=== PATIENT | male | born 1945 | race Caucasian/White ===

== ENCOUNTER 2017-09-21 19:10 | Inpatient (IN) ==
[2017-09-21 19:39] LABS: Basophils % 0.1 % (0.0-0.8); Hematocrit 36.7 VOL% (42.0-52.0); Hemoglobin 12.2 GM/DL (14.0-18.0); Immature Granulocytes % 0.9 %; Immature Granulocytes Absolute 0.08 #; Lymphocytes # 0.4 10*3/uL (1.4-4.0); Lymphocytes % 4.7 % (21.2-54.2); Mean Corpuscular HGB Conc 33.2 GM/DL (32-36); Mean Corpuscular Hemoglobin 32 PG (27-34); Mean Corpuscular Volume 94.8 FL (87-102); Mean Platelet Volume 11.8 FL (9.6-12.0); Monocytes # 0.8 10*3/uL (0.11-0.8); Monocytes % 9.1 % (1.7-12.7); Neutrophils # 7.8 10*3/uL (1.4-7.4); Neutrophils % 85.2 % (38.7-73.9); Red Blood Count 3.87 MC/CUMM (3.8-5.5); Red Cell Distribution Width 13.2 % (9.3-17.3); White Blood Count 9.2 T/CUMM (4-12)
[2017-09-21 19:40] LABS: Platelet Count 87 T/CUMM (130-400)
[2017-09-21 19:45] LABS: INR 1.4; PT Patient Result 14.1 SECS; Partial Thromboplastin Time 34.8 SECS (0-40)
[2017-09-21] MEDS ORDERED: SODIUM CHLORIDE 0.9% 1,000 ML IV STA (19:53)
[2017-09-21] MEDS ORDERED: KETOROLAC 30 MG/1 ML VIAL IV STA (19:54)
[2017-09-21 20:06] LABS: Lactic Acid 1.5 MMOL/L (0.4-2.0)
[2017-09-21 20:13] LABS: Alanine Aminotransferase 159 U/L (16-61); Albumin 2.9 G/DL (3.4-5.0); Alkaline Phosphatase 86 U/L (45-117); Blood Urea Nitrogen 29 MG/DL (7-18); Calcium 8.1 MG/DL (8.5-10.1); Glucose 110 MG/DL (74-106); Osmolality,Calculated 289.1 MOS/KG (273-304); Potassium 4.7 MMOL/L (3.5-5.1); Sodium 142 MMOL/L (136-145); Total Protein 5.7 G/DL (6.4-8.3); Troponin I Only 0.045 NG/ML (0.00-0.045)
[2017-09-21 20:14] LABS: Aspartate Amino Transferase 1284 U/L (0-37)
[2017-09-21] MEDS ORDERED: VANCOMYCIN INJ 1,000 MG in SODIUM CHLORIDE 0.9% 250 ML IV STA (20:31)
[2017-09-21] MEDS ORDERED: AZITHROMYCIN INJ 500 MG in SODIUM CHLORIDE 0.9% 250 ML IV STA (20:32)
[2017-09-21] MEDS ORDERED: cefTRIAXone 1,000 MG in SODIUM CHLORIDE 0.9% 100 ML IV STA (20:32)
[2017-09-21] MEDS ORDERED: cefTRIAXone 1,000 MG VIAL ONE (21:12)
[2017-09-21] MEDS ORDERED: AZITHROMYCIN 500 MG VIAL IV ONE (21:12)
[2017-09-21] MEDS ORDERED: VANCOMYCIN 1,000 MG VIAL ONE (21:12)
[2017-09-21] MEDS ORDERED: KETOROLAC 30 MG/1 ML VIAL ONE (21:22)
[2017-09-21] MEDS ORDERED: ALBUTEROL 2.5 MG/3 ML NEB RESP TX PRN (21:38)
[2017-09-21] MEDS ORDERED: ONDANSETRON 4 MG/2 ML VIAL IV PRN (21:38)
[2017-09-21] MEDS: OSELTAMIVIR 75 MG CAPSULE PO SCH (23:10)
[2017-09-22] MEDS: ALBUTEROL/IPRATROPIUM 3 ML NEB RESP TX SCH ×4 (00:48→19:24)
[2017-09-22] MEDS: VANCOMYCIN INJ 1,250 MG in SODIUM CHLORIDE 0.9% 250 ML IV SCH ×3 (05:29→23:05)
[2017-09-22] MEDS: BUDESONIDE 0.5 MG/2 ML NEB RESP TX SCH ×2 (07:45→19:25)
[2017-09-22 07:57] LABS: Basophils % 0.2 % (0.0-0.8); Hematocrit 34.1 VOL% (42.0-52.0); Hemoglobin 11.1 GM/DL (14.0-18.0); Immature Granulocytes % 0.7 %; Immature Granulocytes Absolute 0.06 #; Lymphocytes % 10.8 % (21.2-54.2); Mean Corpuscular HGB Conc 32.6 GM/DL (32-36); Mean Corpuscular Hemoglobin 31 PG (27-34); Mean Corpuscular Volume 96.1 FL (87-102); Mean Platelet Volume 12.1 FL (9.6-12.0); Monocytes # 0.5 10*3/uL (0.11-0.8); Monocytes % 5.6 % (1.7-12.7); Neutrophils # 7.4 10*3/uL (1.4-7.4); Neutrophils % 82.7 % (38.7-73.9); Red Blood Count 3.55 MC/CUMM (3.8-5.5); Red Cell Distribution Width 13.3 % (9.3-17.3)
[2017-09-22 08:13] LABS: Platelet Count 76 T/CUMM (130-400)
[2017-09-22 08:23] LABS: Band Neutrophils 13 % (0-10); Hypochromasia 1+; Lymphocytes 9 % (20-55); Ovalocytes Slight; Segmented Neutrophils 74 % (50-85); Total Cells Counted 100
[2017-09-22 08:24] LABS: Microcytosis Slight; Platelet Estimate Decreased; Tear Drop Cells Slight
[2017-09-22 08:27] LABS: Albumin 2.8 G/DL (3.4-5.0); Bilirubin,Total 1.1 MG/DL (0.2-1.0); Calcium 7.9 MG/DL (8.5-10.1); Osmolality,Calculated 293.7 MOS/KG (273-304); Potassium 4.4 MMOL/L (3.5-5.1)
[2017-09-22 09:13] LABS: Albumin 2.8 G/DL (3.4-5.0); Bilirubin,Total 1.1 MG/DL (0.2-1.0)
[2017-09-22 09:23] LABS: Bilirubin,Direct 0.584 MG/DL (0.0-0.20); Bilirubin,Indirect 0.5 MG/DL (0.0-1.0)
[2017-09-22 09:27] LABS: Hepatitis A Ab IgM Result Negative (Negative); Hepatitis B Core IgM Quant 0.18 Index; Hepatitis B Core IgM Result Negative (Negative); Hepatitis B Surface Ag Quant 0.12 Index; Hepatitis B Surface Ag Result Negative (Negative); Hepatitis C Virus Ab Quant 0.08 Index; Hepatitis C Virus Ab Result Negative (Negative)
[2017-09-22] MEDS: ENOXAPARIN 40 MG/0.4 ML SYRINGE SUBCUT SCH (09:28)
[2017-09-22] MEDS: LEVOTHYROXINE 88 MCG TABLET PO SCH (09:29)
[2017-09-22] MEDS: RIVASTIGMINE 3 MG CAPSULE PO SCH ×2 (09:29→16:35)
[2017-09-22] MEDS: rOPINIRole 1 MG TABLET PO SCH ×3 (09:30→21:24)
[2017-09-22] MEDS: buPROPion XL 150 MG TABLET PO SCH (09:30)
[2017-09-22] MEDS: LURASIDONE 40 MG TABLET PO SCH (09:30)
[2017-09-22] MEDS: ENTACAPONE 200 MG TABLET PO SCH ×5 (09:31→21:25)
[2017-09-22] MEDS: OSELTAMIVIR 75 MG CAPSULE PO SCH ×2 (09:31→21:24)
[2017-09-22] MEDS: AMIODARONE 200 MG TABLET PO SCH (09:32)
[2017-09-22] MEDS: FOLIC ACID 1 MG TABLET PO SCH (09:32)
[2017-09-22] MEDS: ASPIRIN EC 81 MG TABLET PO SCH (09:32)
[2017-09-22] MEDS: MEMANTINE 10 MG TABLET PO SCH ×2 (09:32→21:25)
[2017-09-22] MEDS: hydrOXYzine HCL 10 MG TABLET PO SCH (09:33)
[2017-09-22] MEDS: PANTOPRAZOLE 40 MG TABLET PO SCH (09:33)
[2017-09-22] MEDS: CHOLECALCIFEROL 1,000 UNIT TABLET PO SCH (09:34)
[2017-09-22] MEDS: CARBIDOPA/LEVODOPA CR 50-200 MG TABLET PO SCH ×3 (11:46→21:25)
[2017-09-22 15:55] LABS: Acetaminophen 4.6 UG/ML (10-30); Salicylate 12.3 MG/DL (2.8-20)
[2017-09-22] MEDS: cefTRIAXone 1,000 MG in SYRINGE 1 EACH IV SCH (21:22)
[2017-09-22] MEDS: ATORVASTATIN 40 MG TABLET PO SCH (21:24)
[2017-09-22] MEDS: ESCITALOPRAM 10 MG TABLET PO SCH (21:25)
[2017-09-22] MEDS: AZITHROMYCIN INJ 500 MG in SODIUM CHLORIDE 0.9% 250 ML IV SCH (21:28)
[2017-09-23] MEDS: ALBUTEROL/IPRATROPIUM 3 ML NEB RESP TX SCH ×4 (00:28→19:24)
[2017-09-23] MEDS: VANCOMYCIN INJ 1,250 MG in SODIUM CHLORIDE 0.9% 250 ML IV SCH ×2 (06:07→21:31)
[2017-09-23] MEDS: LEVOTHYROXINE 88 MCG TABLET PO SCH (06:12)
[2017-09-23] MEDS: ENTACAPONE 200 MG TABLET PO SCH ×5 (06:12→21:27)
[2017-09-23 06:22] LABS: INR 1.3; PT Patient Result 13.1 SECS
[2017-09-23 06:25] LABS: Basophils % 0.3 % (0.0-0.8); Eosinophils # 0.1 10*3/uL (0.0-0.87); Eosinophils % 1.4 % (0.00-10.9); Hematocrit 30.7 VOL% (42.0-52.0); Hemoglobin 10.4 GM/DL (14.0-18.0); Immature Granulocytes % 0.6 %; Immature Granulocytes Absolute 0.04 #; Lymphocytes # 0.7 10*3/uL (1.4-4.0); Lymphocytes % 10.6 % (21.2-54.2); Mean Corpuscular HGB Conc 33.9 GM/DL (32-36); Mean Corpuscular Hemoglobin 31 PG (27-34); Mean Corpuscular Volume 91.9 FL (87-102); Mean Platelet Volume 11.9 FL (9.6-12.0); Monocytes # 0.5 10*3/uL (0.11-0.8); Monocytes % 7.9 % (1.7-12.7); Neutrophils # 5.1 10*3/uL (1.4-7.4); Neutrophils % 79.2 % (38.7-73.9); Platelet Count 74 T/CUMM (130-400); Red Blood Count 3.34 MC/CUMM (3.8-5.5); Red Cell Distribution Width 13.2 % (9.3-17.3); White Blood Count 6.5 T/CUMM (4-12)
[2017-09-23 06:49] LABS: Calcium 8.1 MG/DL (8.5-10.1); Osmolality,Calculated 285.1 MOS/KG (273-304)
[2017-09-23 06:50] LABS: Albumin 2.5 G/DL (3.4-5.0); Bilirubin,Direct 0.54 MG/DL (0.0-0.20); Bilirubin,Total 1.1 MG/DL (0.2-1.0)
[2017-09-23 06:57] LABS: Band Neutrophils 2 % (0-10); Eosinophils 1 % (0-10); Lymphocytes 11 % (20-55); Segmented Neutrophils 80 % (50-85); Total Cells Counted 100
[2017-09-23 06:58] LABS: Giant Platelets Few; Hypochromasia 1+; Microcytosis Slight; Ovalocytes Slight; Platelet Estimate Decreased
[2017-09-23] MEDS: BUDESONIDE 0.5 MG/2 ML NEB RESP TX SCH ×2 (07:09→19:24)
[2017-09-23 07:56] LABS: Albumin 2.5 G/DL (3.4-5.0); Bilirubin,Direct 0.63 MG/DL (0.0-0.20); Bilirubin,Indirect 0.5 MG/DL (0.0-1.0); Bilirubin,Total 1.1 MG/DL (0.2-1.0); Total Protein 4.7 G/DL (6.4-8.3)
[2017-09-23] MEDS: ENOXAPARIN 40 MG/0.4 ML SYRINGE SUBCUT SCH (09:39)
[2017-09-23] MEDS: OSELTAMIVIR 75 MG CAPSULE PO SCH ×2 (09:40→21:28)
[2017-09-23] MEDS: rOPINIRole 1 MG TABLET PO SCH ×3 (09:40→21:28)
[2017-09-23] MEDS: LURASIDONE 40 MG TABLET PO SCH (09:42)
[2017-09-23] MEDS: RIVASTIGMINE 3 MG CAPSULE PO SCH ×2 (09:42→17:09)
[2017-09-23] MEDS: CARBIDOPA/LEVODOPA CR 50-200 MG TABLET PO SCH ×3 (09:42→21:28)
[2017-09-23] MEDS: AMIODARONE 200 MG TABLET PO SCH (09:43)
[2017-09-23] MEDS: ASPIRIN EC 81 MG TABLET PO SCH (09:43)
[2017-09-23] MEDS: CHOLECALCIFEROL 1,000 UNIT TABLET PO SCH (09:43)
[2017-09-23] MEDS: buPROPion XL 150 MG TABLET PO SCH (09:43)
[2017-09-23] MEDS: hydrOXYzine HCL 10 MG TABLET PO SCH (09:43)
[2017-09-23] MEDS: FOLIC ACID 1 MG TABLET PO SCH (09:44)
[2017-09-23] MEDS: PANTOPRAZOLE 40 MG TABLET PO SCH (09:45)
[2017-09-23] MEDS: MEMANTINE 10 MG TABLET PO SCH ×2 (09:48→21:28)
[2017-09-23] MEDS: AZITHROMYCIN INJ 500 MG in SODIUM CHLORIDE 0.9% 250 ML IV SCH (21:22)
[2017-09-23] MEDS: cefTRIAXone 1,000 MG in SYRINGE 1 EACH IV SCH (21:24)
[2017-09-23] MEDS: ESCITALOPRAM 10 MG TABLET PO SCH (21:27)
[2017-09-23] MEDS: ATORVASTATIN 40 MG TABLET PO SCH (21:28)
[2017-09-24] MEDS: ALBUTEROL/IPRATROPIUM 3 ML NEB RESP TX SCH ×4 (00:37→19:39)
[2017-09-24 05:30] LABS: Basophils % 0.2 % (0.0-0.8); Eosinophils # 0.1 10*3/uL (0.0-0.87); Eosinophils % 2.7 % (0.00-10.9); Hematocrit 31.5 VOL% (42.0-52.0); Hemoglobin 10.6 GM/DL (14.0-18.0); Immature Granulocytes % 0.4 %; Immature Granulocytes Absolute 0.02 #; Lymphocytes # 0.7 10*3/uL (1.4-4.0); Lymphocytes % 12.9 % (21.2-54.2); Mean Corpuscular HGB Conc 33.7 GM/DL (32-36); Mean Corpuscular Hemoglobin 31 PG (27-34); Mean Corpuscular Volume 91.6 FL (87-102); Mean Platelet Volume 12.5 FL (9.6-12.0); Monocytes # 0.4 10*3/uL (0.11-0.8); Monocytes % 8.4 % (1.7-12.7); Neutrophils # 3.8 10*3/uL (1.4-7.4); Neutrophils % 75.4 % (38.7-73.9); Platelet Count 80 T/CUMM (130-400); Red Blood Count 3.44 MC/CUMM (3.8-5.5); Red Cell Distribution Width 13.3 % (9.3-17.3); White Blood Count 5.1 T/CUMM (4-12)
[2017-09-24 05:58] LABS: Potassium 4.3 MMOL/L (3.5-5.1)
[2017-09-24 06:05] LABS: Albumin 2.5 G/DL (3.4-5.0); Bilirubin,Total 1.4 MG/DL (0.2-1.0); Calcium 7.9 MG/DL (8.5-10.1); Potassium 4.1 MMOL/L (3.5-5.1); Total Protein 4.6 G/DL (6.4-8.3)
[2017-09-24] MEDS: LEVOTHYROXINE 88 MCG TABLET PO SCH (06:14)
[2017-09-24] MEDS: ENTACAPONE 200 MG TABLET PO SCH ×5 (06:14→22:55)
[2017-09-24 06:40] LABS: Hypochromasia 1+; Microcytosis Slight; Ovalocytes Slight; Platelet Estimate Decreased
[2017-09-24] MEDS: BUDESONIDE 0.5 MG/2 ML NEB RESP TX SCH ×2 (07:10→19:39)
[2017-09-24] MEDS: RIVASTIGMINE 3 MG CAPSULE PO SCH ×2 (09:52→18:18)
[2017-09-24] MEDS: CHOLECALCIFEROL 1,000 UNIT TABLET PO SCH (09:53)
[2017-09-24] MEDS: OSELTAMIVIR 75 MG CAPSULE PO SCH ×2 (09:53→22:39)
[2017-09-24] MEDS: rOPINIRole 1 MG TABLET PO SCH ×3 (09:53→22:55)
[2017-09-24] MEDS: ASPIRIN EC 81 MG TABLET PO SCH (09:53)
[2017-09-24] MEDS: LURASIDONE 40 MG TABLET PO SCH (09:53)
[2017-09-24] MEDS: buPROPion XL 150 MG TABLET PO SCH (09:53)
[2017-09-24] MEDS: MEMANTINE 10 MG TABLET PO SCH ×2 (09:54→22:39)
[2017-09-24] MEDS: PANTOPRAZOLE 40 MG TABLET PO SCH (09:54)
[2017-09-24] MEDS: AMIODARONE 200 MG TABLET PO SCH (09:54)
[2017-09-24] MEDS: CARBIDOPA/LEVODOPA CR 50-200 MG TABLET PO SCH ×3 (09:54→22:41)
[2017-09-24] MEDS: VANCOMYCIN INJ 1,250 MG in SODIUM CHLORIDE 0.9% 250 ML IV SCH (09:54)
[2017-09-24] MEDS: FOLIC ACID 1 MG TABLET PO SCH (09:54)
[2017-09-24] MEDS: DOCUSATE SODIUM 100 MG CAPSULE PO SCH ×2 (09:55→22:39)
[2017-09-24] MEDS: hydrOXYzine HCL 10 MG TABLET PO SCH (12:13)
[2017-09-24] MEDS: cefTRIAXone 1,000 MG in SYRINGE 1 EACH IV SCH (22:38)
[2017-09-24] MEDS: AZITHROMYCIN INJ 500 MG in SODIUM CHLORIDE 0.9% 250 ML IV SCH (22:39)
[2017-09-24] MEDS: ESCITALOPRAM 10 MG TABLET PO SCH (22:40)
[2017-09-24] MEDS: ATORVASTATIN 40 MG TABLET PO SCH (22:40)
[2017-09-25] MEDS: VANCOMYCIN INJ 1,250 MG in SODIUM CHLORIDE 0.9% 250 ML IV SCH ×2 (00:22→12:20)
[2017-09-25] MEDS: ALBUTEROL/IPRATROPIUM 3 ML NEB RESP TX SCH ×4 (00:58→20:17)
[2017-09-25] MEDS: ENOXAPARIN 40 MG/0.4 ML SYRINGE SUBCUT SCH (03:01)
[2017-09-25 05:31] LABS: Basophils % 0.5 % (0.0-0.8); Eosinophils # 0.2 10*3/uL (0.0-0.87); Eosinophils % 5.5 % (0.00-10.9); Hematocrit 30.5 VOL% (42.0-52.0); Hemoglobin 10.5 GM/DL (14.0-18.0); Immature Granulocytes Absolute 0.04 #; Lymphocytes # 0.8 10*3/uL (1.4-4.0); Lymphocytes % 19.9 % (21.2-54.2); Mean Corpuscular HGB Conc 34.4 GM/DL (32-36); Mean Corpuscular Hemoglobin 31 PG (27-34); Mean Corpuscular Volume 91.3 FL (87-102); Mean Platelet Volume 12.1 FL (9.6-12.0); Monocytes # 0.4 10*3/uL (0.11-0.8); Neutrophils # 2.4 10*3/uL (1.4-7.4); Neutrophils % 62.1 % (38.7-73.9); Platelet Count 96 T/CUMM (130-400); Red Blood Count 3.34 MC/CUMM (3.8-5.5); Red Cell Distribution Width 13.2 % (9.3-17.3); White Blood Count 3.8 T/CUMM (4-12)
[2017-09-25 06:08] LABS: Albumin 2.5 G/DL (3.4-5.0); Calcium 7.9 MG/DL (8.5-10.1); Osmolality,Calculated 282.1 MOS/KG (273-304); Total Protein 4.7 G/DL (6.4-8.3)
[2017-09-25] MEDS: ENTACAPONE 200 MG TABLET PO SCH ×5 (06:42→21:09)
[2017-09-25] MEDS: LEVOTHYROXINE 88 MCG TABLET PO SCH (06:42)
[2017-09-25] MEDS: BUDESONIDE 0.5 MG/2 ML NEB RESP TX SCH ×2 (07:01→20:17)
[2017-09-25] MEDS: PANTOPRAZOLE 40 MG TABLET PO SCH (09:14)
[2017-09-25] MEDS: rOPINIRole 1 MG TABLET PO SCH ×3 (09:14→21:09)
[2017-09-25] MEDS: MEMANTINE 10 MG TABLET PO SCH ×2 (09:15→21:09)
[2017-09-25] MEDS: OSELTAMIVIR 75 MG CAPSULE PO SCH ×2 (09:15→21:09)
[2017-09-25] MEDS: FOLIC ACID 1 MG TABLET PO SCH (09:15)
[2017-09-25] MEDS: DOCUSATE SODIUM 100 MG CAPSULE PO SCH ×2 (09:15→21:09)
[2017-09-25] MEDS: buPROPion XL 150 MG TABLET PO SCH (09:15)
[2017-09-25] MEDS: CARBIDOPA/LEVODOPA CR 50-200 MG TABLET PO SCH ×3 (09:15→21:09)
[2017-09-25] MEDS: RIVASTIGMINE 3 MG CAPSULE PO SCH ×2 (09:15→17:31)
[2017-09-25] MEDS: ASPIRIN EC 81 MG TABLET PO SCH (09:15)
[2017-09-25] MEDS: LURASIDONE 40 MG TABLET PO SCH (09:15)
[2017-09-25] MEDS: CHOLECALCIFEROL 1,000 UNIT TABLET PO SCH (09:15)
[2017-09-25] MEDS: hydrOXYzine HCL 10 MG TABLET PO SCH (09:16)
[2017-09-25] MEDS: AMIODARONE 200 MG TABLET PO SCH (09:16)
[2017-09-25] MEDS ORDERED: ZINC OXIDE PASTE 113 GM TUBE TOP PRN (17:04)
[2017-09-25] MEDS: AZITHROMYCIN INJ 500 MG in SODIUM CHLORIDE 0.9% 250 ML IV SCH (21:04)
[2017-09-25] MEDS: cefTRIAXone 1,000 MG in SYRINGE 1 EACH IV SCH (21:06)
[2017-09-25] MEDS: ATORVASTATIN 40 MG TABLET PO SCH (21:09)
[2017-09-25] MEDS: ESCITALOPRAM 10 MG TABLET PO SCH (21:09)
[2017-09-26] MEDS: ALBUTEROL/IPRATROPIUM 3 ML NEB RESP TX SCH ×4 (01:57→20:30)
[2017-09-26] MEDS: LEVOTHYROXINE 88 MCG TABLET PO SCH (05:25)
[2017-09-26] MEDS: ENTACAPONE 200 MG TABLET PO SCH ×5 (05:25→21:42)
[2017-09-26] MEDS: VANCOMYCIN INJ 1,250 MG in SODIUM CHLORIDE 0.9% 250 ML IV SCH (05:28)
[2017-09-26] MEDS: BUDESONIDE 0.5 MG/2 ML NEB RESP TX SCH ×2 (07:02→20:30)
[2017-09-26 07:17] LABS: Eosinophils # 0.3 10*3/uL (0.0-0.87); Hematocrit 31.7 VOL% (42.0-52.0); Hemoglobin 10.8 GM/DL (14.0-18.0); Immature Granulocytes % 2.2 %; Immature Granulocytes Absolute 0.09 #; Lymphocytes # 0.8 10*3/uL (1.4-4.0); Lymphocytes % 20.2 % (21.2-54.2); Mean Corpuscular HGB Conc 34.1 GM/DL (32-36); Mean Corpuscular Hemoglobin 31 PG (27-34); Mean Corpuscular Volume 91.9 FL (87-102); Mean Platelet Volume 11.5 FL (9.6-12.0); Monocytes # 0.5 10*3/uL (0.11-0.8); Neutrophils # 2.3 10*3/uL (1.4-7.4); Neutrophils % 56.6 % (38.7-73.9); Platelet Count 107 T/CUMM (130-400); Red Blood Count 3.45 MC/CUMM (3.8-5.5); Red Cell Distribution Width 13.3 % (9.3-17.3)
[2017-09-26 07:44] LABS: Osmolality,Calculated 283.1 MOS/KG (273-304); Potassium 4.3 MMOL/L (3.5-5.1)
[2017-09-26 08:14] LABS: Albumin 2.6 G/DL (3.4-5.0); Bilirubin,Direct 0.31 MG/DL (0.0-0.20); Bilirubin,Indirect 0.4 MG/DL (0.0-1.0); Bilirubin,Total 0.7 MG/DL (0.2-1.0); Total Protein 4.9 G/DL (6.4-8.3)
[2017-09-26] MEDS: DOCUSATE SODIUM 100 MG CAPSULE PO SCH ×2 (08:29→21:40)
[2017-09-26] MEDS: buPROPion XL 150 MG TABLET PO SCH (08:29)
[2017-09-26] MEDS: rOPINIRole 1 MG TABLET PO SCH ×3 (08:29→21:42)
[2017-09-26] MEDS: OSELTAMIVIR 75 MG CAPSULE PO SCH ×2 (08:29→21:41)
[2017-09-26] MEDS: RIVASTIGMINE 3 MG CAPSULE PO SCH ×2 (08:29→17:28)
[2017-09-26] MEDS: CHOLECALCIFEROL 1,000 UNIT TABLET PO SCH (08:29)
[2017-09-26] MEDS: LURASIDONE 40 MG TABLET PO SCH (08:30)
[2017-09-26] MEDS: hydrOXYzine HCL 10 MG TABLET PO SCH (08:30)
[2017-09-26] MEDS: MEMANTINE 10 MG TABLET PO SCH ×2 (08:30→21:41)
[2017-09-26] MEDS: ASPIRIN EC 81 MG TABLET PO SCH (08:30)
[2017-09-26] MEDS: FOLIC ACID 1 MG TABLET PO SCH (08:30)
[2017-09-26] MEDS: PANTOPRAZOLE 40 MG TABLET PO SCH (08:30)
[2017-09-26] MEDS: AMIODARONE 200 MG TABLET PO SCH (08:30)
[2017-09-26] MEDS: CARBIDOPA/LEVODOPA CR 50-200 MG TABLET PO SCH ×3 (08:30→21:41)
[2017-09-26] MEDS: MAGNESIUM HYDROXIDE SUSP 30 ML UDCUP PO PRN (14:31)
[2017-09-26] MEDS: ESCITALOPRAM 10 MG TABLET PO SCH (21:40)
[2017-09-26] MEDS: ATORVASTATIN 40 MG TABLET PO SCH (21:40)
[2017-09-26] MEDS: cefTRIAXone 1,000 MG in SYRINGE 1 EACH IV SCH (21:44)
[2017-09-26] MEDS: AZITHROMYCIN INJ 500 MG in SODIUM CHLORIDE 0.9% 250 ML IV SCH (21:53)
[2017-09-27] MEDS: VANCOMYCIN INJ 1,250 MG in SODIUM CHLORIDE 0.9% 250 ML IV SCH (00:08)
[2017-09-27] MEDS: ALBUTEROL/IPRATROPIUM 3 ML NEB RESP TX SCH ×4 (00:25→21:21)
[2017-09-27] MEDS: ENTACAPONE 200 MG TABLET PO SCH ×5 (06:03→22:24)
[2017-09-27] MEDS: LEVOTHYROXINE 88 MCG TABLET PO SCH (06:03)
[2017-09-27] MEDS: BUDESONIDE 0.5 MG/2 ML NEB RESP TX SCH ×2 (06:55→21:21)
[2017-09-27] MEDS: PANTOPRAZOLE 40 MG TABLET PO SCH (08:33)
[2017-09-27] MEDS: buPROPion XL 150 MG TABLET PO SCH (08:33)
[2017-09-27] MEDS: MAGNESIUM HYDROXIDE SUSP 30 ML UDCUP PO PRN (08:33)
[2017-09-27] MEDS: rOPINIRole 1 MG TABLET PO SCH ×3 (08:33→20:57)
[2017-09-27] MEDS: CARBIDOPA/LEVODOPA CR 50-200 MG TABLET PO SCH ×3 (08:34→21:03)
[2017-09-27] MEDS: DOCUSATE SODIUM 100 MG CAPSULE PO SCH ×2 (08:34→20:58)
[2017-09-27] MEDS: AMIODARONE 200 MG TABLET PO SCH (08:34)
[2017-09-27] MEDS: CHOLECALCIFEROL 1,000 UNIT TABLET PO SCH (08:34)
[2017-09-27] MEDS: MEMANTINE 10 MG TABLET PO SCH ×2 (08:34→20:57)
[2017-09-27] MEDS: RIVASTIGMINE 3 MG CAPSULE PO SCH ×2 (08:34→17:52)
[2017-09-27] MEDS: ASPIRIN EC 81 MG TABLET PO SCH (08:34)
[2017-09-27] MEDS: OSELTAMIVIR 75 MG CAPSULE PO SCH (08:34)
[2017-09-27] MEDS: FOLIC ACID 1 MG TABLET PO SCH (08:34)
[2017-09-27] MEDS ORDERED: hydrOXYzine HCL 10 MG TABLET PO SCH (09:00)
[2017-09-27] MEDS ORDERED: LORazepam 0.5 MG TABLET PO PRN (14:40)
[2017-09-27] MEDS: hydrOXYzine HCL 25 MG TABLET PO SCH ×2 (15:40→20:58)
[2017-09-27] MEDS ORDERED: SODIUM CHLORIDE 0.9% 250 ML IV ONE (20:53)
[2017-09-27] MEDS: ATORVASTATIN 40 MG TABLET PO SCH (20:57)
[2017-09-27] MEDS: ESCITALOPRAM 10 MG TABLET PO SCH (20:58)
[2017-09-27] MEDS: cefTRIAXone 1,000 MG in SYRINGE 1 EACH IV SCH (20:58)
[2017-09-27] MEDS ORDERED: LURASIDONE 40 MG TABLET PO SCH (21:00)
[2017-09-28] MEDS: ALBUTEROL/IPRATROPIUM 3 ML NEB RESP TX SCH ×3 (01:34→13:40)
[2017-09-28] MEDS: ENTACAPONE 200 MG TABLET PO SCH ×2 (06:33→09:13)
[2017-09-28] MEDS: LEVOTHYROXINE 88 MCG TABLET PO SCH (06:33)
[2017-09-28] MEDS: BUDESONIDE 0.5 MG/2 ML NEB RESP TX SCH (07:50)
[2017-09-28] MEDS: CARBIDOPA/LEVODOPA CR 50-200 MG TABLET PO SCH (08:25)
[2017-09-28] MEDS: DOCUSATE SODIUM 100 MG CAPSULE PO SCH (08:25)
[2017-09-28] MEDS: RIVASTIGMINE 3 MG CAPSULE PO SCH (08:25)
[2017-09-28] MEDS: rOPINIRole 1 MG TABLET PO SCH (08:25)
[2017-09-28] MEDS: buPROPion XL 150 MG TABLET PO SCH (08:25)
[2017-09-28] MEDS: MEMANTINE 10 MG TABLET PO SCH (08:26)
[2017-09-28] MEDS: AMIODARONE 200 MG TABLET PO SCH (08:26)
[2017-09-28] MEDS: PANTOPRAZOLE 40 MG TABLET PO SCH (08:26)
[2017-09-28] MEDS: ASPIRIN EC 81 MG TABLET PO SCH (08:26)
[2017-09-28] MEDS: FOLIC ACID 1 MG TABLET PO SCH (08:26)
[2017-09-28] MEDS: hydrOXYzine HCL 25 MG TABLET PO SCH (08:27)
[2017-09-28] MEDS: CHOLECALCIFEROL 1,000 UNIT TABLET PO SCH (08:31)
[2017-09-28 12:14] VITALS: BP 102/56
[2017-09-28] MEDS: cefTRIAXone 1,000 MG in SYRINGE 1 EACH IV SCH (12:30)
== END 2017-09-28 13:58 | disposition home health service (06) | DRG 871 ==
LOC: EDBD → EDUNIT# → N.ED 19:10 → N.EDINP 21:18 → SUATTDRO 21:19 → N.2E 21:54
PROVIDERS: ADMIT Internal Medicine Infectious Disease; ATTEND Internal Medicine

== ENCOUNTER 2019-01-21 08:12 | Inpatient (IN) ==
[2019-01-21] MEDS ORDERED: SODIUM CHLORIDE 0.9% 1,000 ML IV STA (08:49)
[2019-01-21 09:42] LABS: Basophils # 0.1 10*3/uL (0.0-0.2); Basophils % 0.7 % (0.0-0.8); Eosinophils # 0.1 10*3/uL (0.0-0.87); Eosinophils % 0.7 % (0.00-10.9); Hematocrit 40.1 VOL% (42.0-52.0); Hemoglobin 12.9 GM/DL (14.0-18.0); Immature Granulocytes % 0.5 %; Immature Granulocytes Absolute 0.05 #; Lymphocytes # 0.8 10*3/uL (1.4-4.0); Lymphocytes % 8.2 % (21.2-54.2); Mean Corpuscular HGB Conc 32.2 GM/DL (32-36); Mean Corpuscular Volume 97.1 FL (87-102); Mean Platelet Volume 10.8 FL (9.6-12.0); Monocytes % 7.7 % (1.7-12.7); Neutrophils % 82.2 % (38.7-73.9); Platelet Count 161 T/CUMM (130-400); Red Blood Count 4.13 MC/CUMM (3.8-5.5); Red Cell Distribution Width 12.6 % (9.3-17.3); White Blood Count 9.1 T/CUMM (4-12)
[2019-01-21 10:04] LABS: Albumin 3.8 G/DL (3.4-5.0); Bilirubin,Total 1.2 MG/DL (0.2-1.0); Calcium 9.7 MG/DL (8.5-10.1); Osmolality,Calculated 291.8 MOS/KG (273-304); Total Protein 7.1 G/DL (6.4-8.3)
[2019-01-21] MEDS ORDERED: ACETAMINOPHEN 325 MG TABLET PO PRN (10:54)
[2019-01-21] MEDS ORDERED: ONDANSETRON 4 MG/2 ML VIAL IV PRN (10:54)
[2019-01-21 11:00] LABS: Apearance,Urine Slightly Hazy (Clear); Bilirubin,Urine Small mg/dL (Negative); Blood, Urine Small mg/dL (Negative); Glucose,Urine (UA) Negative (Negative); Hyaline Casts,Urine 7 /LPF (0-3); Ketones,Urine 5 mg/dL (Negative); Mucus,Urine Many /LPF (Occasional); Nitrite,Urine Negative (Negative); Protein,Urine 100 MG/DL; RBC,Urine 2 /HPF (0-4); Squamous Epithelial Cell,Urine Occasional /HPF (0-10); Urine Color Amber (Yellow); Urine Specific Gravity 1.023 (1.001-1.035); Urine Urobilinogen < 2.0 EU/DL (0.2-1.0); WBC,Urine 2 /HPF (0-6)
[2019-01-21] MEDS: SODIUM CHLORIDE 0.9% 1,000 ML IV SCH (15:30)
[2019-01-21] MEDS ORDERED: LORazepam 2 MG/1 ML VIAL IM ONE (16:16)
[2019-01-21] MEDS ORDERED: ZALEPLON 5 MG CAPSULE PO PRN (18:25)
[2019-01-21] MEDS ORDERED: LORazepam 2 MG/1 ML VIAL IV ONE (20:26)
[2019-01-21] MEDS ORDERED: ZALEPLON 5 MG CAPSULE PO ONE (23:22)
[2019-01-22] MEDS: SODIUM CHLORIDE 0.9% 1,000 ML IV SCH ×2 (00:20→03:36)
[2019-01-22 04:38] LABS: Basophils % 0.5 % (0.0-0.8); Eosinophils # 0.1 10*3/uL (0.0-0.87); Eosinophils % 0.8 % (0.00-10.9); Hematocrit 32.6 VOL% (42.0-52.0); Hemoglobin 10.7 GM/DL (14.0-18.0); Immature Granulocytes % 0.4 %; Immature Granulocytes Absolute 0.03 #; Lymphocytes # 0.9 10*3/uL (1.4-4.0); Lymphocytes % 10.7 % (21.2-54.2); Mean Corpuscular HGB Conc 32.8 GM/DL (32-36); Mean Corpuscular Volume 95.6 FL (87-102); Mean Platelet Volume 11.4 FL (9.6-12.0); Monocytes % 10.4 % (1.7-12.7); Neutrophils % 77.2 % (38.7-73.9); Platelet Count 125 T/CUMM (130-400); Red Blood Count 3.41 MC/CUMM (3.8-5.5); Red Cell Distribution Width 12.7 % (9.3-17.3); White Blood Count 8.2 T/CUMM (4-12)
[2019-01-22 04:56] LABS: Calcium 8.8 MG/DL (8.5-10.1); Osmolality,Calculated 298.6 MOS/KG (273-304); Risk Ratio 2.14; Thyroid Stimulating Hormone 1.98 uIU/ml (0.358-3.74); VLDL CHOLESTEROL 14.4 MG/DL
[2019-01-22] MEDS ORDERED: LORazepam 2 MG/1 ML VIAL IV ONE (08:23)
[2019-01-22] MEDS: ENOXAPARIN 30 MG/0.3 ML SYRINGE SUBCUT SCH (08:54)
[2019-01-22] MEDS ORDERED: ENOXAPARIN 40 MG/0.4 ML SYRINGE SUBCUT SCH (09:00)
[2019-01-22] MEDS: FOLIC ACID 1 MG TABLET PO SCH (13:46)
[2019-01-22] MEDS: MEMANTINE 5 MG TABLET PO SCH ×2 (13:46→23:34)
[2019-01-22] MEDS: buPROPion XL 150 MG TABLET PO SCH (13:46)
[2019-01-22] MEDS: ASPIRIN EC 81 MG TABLET PO SCH (13:46)
[2019-01-22] MEDS: LEVOTHYROXINE 88 MCG TABLET PO SCH (13:46)
[2019-01-22] MEDS: PANTOPRAZOLE 40 MG TABLET PO SCH (13:46)
[2019-01-22] MEDS: CARBIDOPA LEVODOPA ENTACAPONE PO SCH ×4 (13:47→23:34)
[2019-01-22] MEDS: RASAGILINE 0.5 MG PO SCH (14:05)
[2019-01-22] MEDS ORDERED: ZIPRASIDONE 20 MG/1 ML VIAL IM ONE (15:59)
[2019-01-22] MEDS ORDERED: SODIUM CHLORIDE 0.45% 1,000 ML IV SCH (16:00)
[2019-01-22] MEDS: rOPINIRole 1 MG TABLET PO SCH ×2 (16:26→23:34)
[2019-01-22] MEDS: RIVASTIGMINE 3 MG CAPSULE PO SCH (17:46)
[2019-01-22] MEDS ORDERED: ATORVASTATIN 40 MG TABLET PO SCH (21:00)
[2019-01-22] MEDS ORDERED: LURASIDONE 80 MG PO SCH (21:00)
[2019-01-22] MEDS ORDERED: ESCITALOPRAM 10 MG TABLET PO SCH (21:00)
[2019-01-22] MEDS ORDERED: GABAPENTIN 100 MG CAPSULE PO SCH (21:00)
[2019-01-23 05:17] LABS: Basophils # 0.1 10*3/uL (0.0-0.2); Eosinophils # 0.2 10*3/uL (0.0-0.87); Eosinophils % 2.5 % (0.00-10.9); Hematocrit 36.9 VOL% (42.0-52.0); Hemoglobin 11.8 GM/DL (14.0-18.0); Immature Granulocytes % 0.4 %; Immature Granulocytes Absolute 0.03 #; Lymphocytes # 1.2 10*3/uL (1.4-4.0); Lymphocytes % 15.3 % (21.2-54.2); Mean Corpuscular Volume 97.1 FL (87-102); Monocytes % 7.6 % (1.7-12.7); Neutrophils % 73.2 % (38.7-73.9); Platelet Count 143 T/CUMM (130-400); Red Cell Distribution Width 12.8 % (9.3-17.3); White Blood Count 7.7 T/CUMM (4-12)
[2019-01-23 05:47] LABS: Calcium 8.8 MG/DL (8.5-10.1)
[2019-01-23] MEDS: LEVOTHYROXINE 88 MCG TABLET PO SCH (06:49)
[2019-01-23] MEDS: CARBIDOPA LEVODOPA ENTACAPONE PO SCH ×2 (06:49→13:54)
[2019-01-23] MEDS: ENOXAPARIN 30 MG/0.3 ML SYRINGE SUBCUT SCH (10:41)
[2019-01-23 12:15] VITALS: BP 122/71
[2019-01-23] MEDS ORDERED: DEXTROSE 5% 1,000 ML IV SCH (12:30)
[2019-01-23] MEDS: RIVASTIGMINE 3 MG CAPSULE PO SCH (13:52)
[2019-01-23] MEDS: MEMANTINE 5 MG TABLET PO SCH (13:53)
[2019-01-23] MEDS: rOPINIRole 1 MG TABLET PO SCH (13:53)
[2019-01-23] MEDS: PANTOPRAZOLE 40 MG TABLET PO SCH (13:53)
[2019-01-23] MEDS: RASAGILINE 0.5 MG PO SCH (13:53)
[2019-01-23] MEDS: FOLIC ACID 1 MG TABLET PO SCH (13:53)
[2019-01-23] MEDS: ASPIRIN EC 81 MG TABLET PO SCH (13:53)
[2019-01-23] MEDS: buPROPion XL 150 MG TABLET PO SCH (13:54)
== END 2019-01-23 13:45 | DRG 57 ==
LOC: N.ED 08:12 → N.EDINP 09:54 → N.4E 14:00
PROVIDERS: ADMIT Internal Medicine; ATTEND Internal Medicine